=== PATIENT | male | born 1995 ===

== ENCOUNTER → 2021-12-22 10:03 | Outpatient (CLI) | payer SELFPAY ==
[2021-12-22 11:41] LABS: Liquefaction Semen NO (YES); Sperm Count 63 x10^6/mL (20-150); Sperm Motility 60% % Motile; Volume Semen 2.5 (1.0-5.0)
[2021-12-22 11:42] LABS: Sperm Morphology 35 %ABNORM (0-30)
== END ==
PROVIDERS: Referring Provider Obstetrics & Gynecology; Visit Provider Obstetrics & Gynecology
DX: Z31.69 Encounter for other general counseling and advice on procreation (principal)
CPT/HCPCS: 89320